=== PATIENT | female | born 1980 | race Caucasian/White ===

== ENCOUNTER 2025-03-06 09:58 | Emergency (ER) | payer OTHER ==
--- OUTSIDE RECORDS SUMMARY | 2025-03-06 10:01 | XMS REPORT | Continuity of Care Document ---
Author Name Unknown Address [address] [facility] [address] [place] [address] Organization [facility] Address [address] [facility] [address] [place] [address] Care Team Providers Care Operations And Maintenance Specialist Name Role Phone LAVINIA REESE Attending Clinician Unavailable Encounters Start Date/Time End Date/Time Encounter Type Admission Type Attending Clinicians Care Facility Care Department Encounter ID Source 2022-03-19 19:42:00 2022-03-19 22:00:00 Emergency ER LAVINIA REESE [facility] [id number] [facility] 2022-03-19 19:42:00 2022-03-19 19:42:00 emergency [id number]
[2025-03-06] MEDS ORDERED: NA CHLORIDE 0.9% 1,000 ML ONE (10:12)
[2025-03-06 10:36] LABS: Absolute Lymphocytes (CBC) 1.9 K/uL (0.7-4.9); Hematocrit 42.2 % (36.0-45.0); Hemoglobin 14.3 g/dL (12.0-15.0); MCH 30.4 pg (27.0-35.0); MCHC 34.0 g/dL (32.0-36.0); MCV 89.5 fL (80-100); MPV 8.6 fL (7.6-11.3); Nucleated RBC Absolute Count 0.0 (0-0); Nucleated Red Blood Cells % 0.0 % (0-0); RBC Red Blood Cell Count 4.71 M/uL (3.86-4.86); White Blood Count 11.80 thou/uL (4.3-10.9)
[2025-03-06 10:47] LABS: ALT/SGPT 32 U/L (13-56); Albumin 3.1 g/dL (3.4-5.0); Albumin/Globulin Ratio 0.9 (1.1-1.8); Alkaline Phosphatase 54 U/L (45-117); Anion Gap 6.7 mEq/L (5.0-15.0); BUN Blood Urea Nitrogen 10 mg/dL (7-18); Globulin 3.6 g/dL (2.3-3.5); Glucose Level 110 mg/dL (74-106); Lipase 14 U/L (13-75); Magnesium 1.9 mg/dL (1.6-2.4); NT PRO-BNP 63 pg/mL (<125); Potassium 3.7 mEq/L (3.5-5.1); Troponin High Sensitivity 3.9 pg/mL (<58.9)
[2025-03-06 10:48] LABS: AST/SGOT < 10 U/L (15-37); Bilirubin Indirect, Calculated 0.3 mg/dL (0.2-0.8)
[2025-03-06 10:49] LABS: Influenza A Ag Positive; Influenza B Ag Negative; SARS-CoV-2 Antigen Rapid Res Negative (Negative)
--- NOTE | 2025-03-06 10:50 | RAD REPORT ---
EXAM: CT brain without contrast HISTORY: Syncope COMPARISON: None TECHNIQUE: Multiple contiguous axial images were obtained and a CT of the brain without contrast.. Sagittal and coronal reconstruction performed. Automated exposure control, adjustment of the mA and/or kV according to patient size, and/or iterative reconstruction. Unless otherwise specified, incidental f indings do not require dedicated imaging follow-up FINDINGS: An intracranial bleed is not seen Ventricles are normal caliber No extra-axial fluid collection noted No significant hypodensity within the brain No fluid within the visualized sinuses or mastoids noted. IMPRESSION: No acute intracranial abnormality noted. If the patient continues to have symptoms to suggest an acute intracranial abnormality then MRI of th e brain would be recommended.
--- NOTE | 2025-03-06 11:05 | RAD REPORT ---
Procedure: Chest Pa And Lat (2 Views) HISTORY: Cough COMPARISON: none FINDINGS: The lungs appear clear of acute infiltrate. No significant pleural effusion noted. The heart is normal size. IMPRESSION: No acute abnormality is displayed.
[2025-03-06] MEDS ORDERED: AZITHROMYCIN 250 MG TAB ONE (11:10)
[2025-03-06] MEDS ORDERED: OSELTAMIVIR 75 MG CAP PO ONE (11:10)
--- NOTE | 2025-03-06 11:12 | EDPHYS ---
Physician Documentation [facility] Name: Carmen Apodaca Age: 44 yrs Sex: Female : 1980 Arrival Date: 03/06/2025 Time: 09:58 Bed 7 Private MD: ED Physician Daniel Sanchez HPI: 03/06 11:08 This 44 yrs old Female presents to ER via EMS with complaints of Syncope. alana 11:08 The patient has experienced syncope, became unresponsive, The patient has experienced alana near-syncope, almost passed out, felt dizzy. Onset: The symptoms/episode began/occurred just prior to arrival. Duration: This was a single episode, that lasted 10 second(s). Context: the episode(s) was witnessed, clinc. Associated injury: The patient did not suffer any apparent associated injury. Associated signs and symptoms: The patient has no apparent associated signs or symptoms. Current symptoms: Currently, the patient is not experiencing any symptoms, the patient feels back to baseline. The patient has not experienced similar symptoms in the past. Historical: - Allergies: 10:13 PENICILLINS; ar8 10:13 Sulfa (Sulfonamide Antibiotics); ar8 10:13 Wellbutrin; ar8 10:13 Zoloft; ar8 - PMHx: 10:13 depressive disorder; IUD; ar8 - Immunization history:: Adult Immunizations not up to date. - Infectious Disease History:: Denies. - Social history:: Smoking status: Patient denies any tobacco usage or history of. - Family history:: not pertinent. ROS: 11:08 Constitutional: Negative for fever, chills, and weight loss, Eyes: Negative for injury, alana pain, redness, and discharge, ENT: Negative for injury, pain, and discharge, Neck: Negative for injury, pain, and swelling, Cardiovascular: Negative for chest pain, palpitations, and edema, Respiratory: Negative for shortness of breath, cough, wheezing, and pleuritic chest pain, Abdomen/GI: Negative for abdominal pain, nausea, vomiting, diarrhea, and constipation, Back: Negative for injury and pain, : Negative for injury, bleeding, discharge, and swelling, MS/Extremity: Negative for injury and deformity, Skin: Negative for injury, rash, and discoloration, Neuro: Negative for headache, weakness, numbness, tingling, and seizure, Psych: Negative for depression, anxiety, suicide ideation, homicidal ideation, and hallucinations, Allergy/Immunology: Negative for hives, rash, and allergies, Endocrine: Negative for neck swelling, polydipsia, polyuria, polyphagia, and marked weight changes, Exam: 11:08 Constitutional: This is a well developed, well nourished patient who is awake, alert, alana and in no acute distress. Head/Face: Normocephalic, atraumatic. Eyes: Pupils equal round and reactive to light, extra-ocular motions intact. Lids and lashes normal. Conjunctiva and sclera are non-icteric and not injected. Cornea within normal limits. Periorbital areas with no swelling, redness, or edema. ENT: Nares patent. No nasal discharge, no septal abnormalities noted. Tympanic membranes are normal and external auditory canals are clear. Oropharynx with no redness, swelling, or masses, exudates, or evidence of obstruction, uvula midline. Mucous membranes moist. Neck: Trachea midline, no thyromegaly or masses palpated, and no cervical lymphadenopathy. Supple, full range of motion without nuchal rigidity, or vertebral point tenderness. No Meningismus. Chest/axilla: Normal chest wall appearance and motion. Nontender with no deformity. No lesions are appreciated. Cardiovascular: Regular rate and rhythm with a normal S1 and S2. No gallops, murmurs, or rubs. Normal PMI, no JVD. No pulse deficits. Respiratory: Lungs have equal breath sounds bilaterally, clear to auscultation and percussion. No rales, rhonchi or wheezes noted. No increased work of breathing, no retractions or nasal flaring. Abdomen/GI: Soft, non-tender, with normal bowel sounds. No distension or tympany. No guarding or rebound. No evidence of tenderness throughout. Back: No spinal tenderness. No costovertebral tenderness. Full range of motion. Skin: Warm, dry with normal turgor. Normal color with no rashes, no lesions, and no evidence of cellulitis. MS/ Extremity: Pulses equal, no cyanosis. Neurovascular intact. Full, normal range of motion., bilateral aka Neuro: Awake and alert, GCS 15, oriented to person, place, time, and situation. Cranial nerves II-XII grossly intact. Motor strength 5/5 in all extremities. Sensory grossly intact. Cerebellar exam normal. Normal gait. Psych: Awake, alert, with orientation to person, place and time. Behavior, mood, and affect are within normal limits. 11:08 ECG was reviewed by the Attending Physician. Vital Signs: 10:00 BP 144 / 92; Pulse 79; Resp 18; Temp 97.5(O); Pulse Ox 97% on R/A; Weight 104.33 kg; ar8 Height 5 ft. 8 in. ; Pain 2/10; 10:30 BP 143 / 68; Pulse 77; Resp 20; Pulse Ox 99% on R/A; Pain 2/10; ar8 11:18 BP 143 / 76; Pulse 82; Resp 18; Pulse Ox 99% on R/A; ar8 10:00 Body Mass Index 34.97 (104.33 kg, 172.72 cm) ar8 10:00 Pain Scale: Adult ar8 10:30 Pain Scale: Adult ar8 MDM: 10:03 Medical Screening Exam initiated alana 11:09 Differential Diagnosis: aortic aneurysm, cardiac arrhythmia, cerebrovascular accident, alana drug effect, emotional response, GI bleed, idiopathic syncope, , pseudo seizure, seizure, sepsis, transient ischemic attack, vasovagal episode. Data reviewed: vital signs, nurses notes, EMS record, lab test result(s), EKG, radiologic studies, CT scan, plain films. Consideration of Admission/Observation Patient was admitted/placed on observation. Escalation of care including admission/observation considered. I considered the following discharge prescriptions or medication management in the emergency department Medications were administered in the Emergency Department. See MAR. Independent interpretation of the following test(s) in the Emergency Department EKG: See my EKG interpretation above. Test considered but Not performed: EKG: no mri brain. Historians other than the Patient: EMS: ems well informed. Care significantly affected by the following chronic conditions: Obesity, depression, iud. 03/06 10:09 Order name: Basic Metabolic Panel; Complete Time: 11: [facility] 03/06 10:09 Order name: CBC with Diff; Complete Time: 11: alana 03/06 10:09 Order name: LFT's; Complete Time: 11: [facility] 03/06 10:09 Order name: Magnesium; Complete Time: 11: alana 03/06 10:09 Order name: NT PRO-BNP; Complete Time: 11: [facility] 03/06 10:09 Order name: Troponin HS; Complete Time: 11:03 [facility] 03/06 10:09 Order name: Group A Streptococcus Rapid; Complete Time: 11:03 [facility] 03/06 10:09 Order name: COVID-19 Ag + Flu A+B Ag; Complete Time: 11:03 [facility] 03/06 10:09 Order name: Lipase; Complete Time: 11:03 [facility] 03/06 10:09 Order name: CT Head Brain wo Cont; Complete Time: 11:03 [facility] 03/06 10:09 Order name: Chest Pa And Lat (2 Views) XRAY; Complete Time: 11:06 [facility] 03/06 10:09 Order name: EKG; Complete Time: 10:10 [facility] 03/06 10:09 Order name: Cardiac monitoring; Complete Time: 10:10 [facility] 03/06 10:09 Order name: EKG - Nurse/Tech; Complete Time: 10:22 [facility] 03/06 10:09 Order name: IV Saline Lock; Complete Time: 10:10 [facility] 03/06 10:09 Order name: Labs collected and sent; Complete Time: 10: [facility] 03/06 10:09 Order name: O2 Per Protocol; Complete Time: 10: [facility] 03/06 10:09 Order name: O2 Sat Monitoring; Complete Time: 10: [facility] EC:08 Rate is 76 beats/min. Rhythm is regular. QRS [place] is Normal. [place] interval is normal. QRS alana interval is normal. QT interval is normal. No Q waves. T waves are Normal. No ST changes noted. Clinical impression: NSR w/ Non-specific ST/T Changes and No evidence of ischemia. Interpreted by me. Reviewed by me. Administered Medications: 10:19 Drug: NS 0.9% IV 1000 ml IV at 1000 ml once; to be given as a bolus over 60 minutes jp5 Route: IV; Rate: 1000 ml; Site: right antecubital; 11:28 Follow up: Response: No adverse reaction; Marked relief of symptoms; IV Status: ar8 Completed infusion 11:14 Drug: Oseltamivir PO 75 mg PO once Route: PO; ar8 11:28 Follow up: Response: No adverse reaction ar8 11:14 Drug: AZITHromycin PO 500 mg PO once Route: PO; ar8 11:28 Follow up: Response: No adverse reaction ar8 Disposition Summary: 03/06/25 11:11 Discharge Ordered Notes: Location: Home [facility] Problem: new alana Symptoms: have improved alana Condition: Stable alana Diagnosis - Syncope Near alana - Influenza due to identified novel influenza A virus alana Followup: alana - With: Private Physician - When: 2 - 3 days - Reason: Recheck today's complaints, Continuance of care, Re-evaluation by your physician Discharge Instructions: - Discharge Summary Sheet alana - Influenza, Adult alana - Near-Syncope alana - Syncope alana - Near-Syncope, [id number] alana - Influenza, Adult, [id number]-[id number]-[id number] alana - Aspirin and Your Heart alana Forms: - Medication Reconciliation Form alana - Antibiotic Education alana - Prescription Opioid Use alana - Patient Portal Instructions alana - Leadership Thank You Letter [facility] Prescriptions: - Tessalon Perles 100 mg Oral capsule - take 2 capsule ORAL route every 8 hours As needed; 30 capsule; Refills: 0, alana Product Selection Permitted - Zithromax Z-David 250 mg Oral Tablet - take 1 tablet ORAL route as directed for 5 days Day 1 - take two (2) tablets alana one time. Day 2, 3, 4 , 5 take one (1) tablet once daily.; 6 tablet; Refills: 0, Product Selection Permitted - Tamiflu 75 mg Oral capsule - take 1 tablet ORAL route every 12 hours for 5 days; 10 tablet; Refills: 0, alana Product Selection Permitted Signatures: Dispatcher [employer] EDDaniel Holden MD MD cha Pena, Jailene, RN RN jp5 Denny De La Cruz RN RN ar8 Corrections: (The following items were deleted from the chart) 10:10 10:10 BASIC METABOLIC PANEL+C.LAB.BRZ ordered. EDMS EDMS 10:10 10:10 CBC+H.LAB.BRZ ordered. EDMS EDMS 10:10 10:10 HEPATIC FUNCTION+C.LAB.BRZ ordered. EDMS EDMS 10:10 10:10 MAGNESIUM+C.LAB.BRZ ordered. EDMS EDMS 10:10 10:10 PROBNP+C.LAB.BRZ ordered. EDMS EDMS 10:10 10:10 Troponin High Sensitivity+C.LAB.BRZ ordered. EDMS EDMS 10:10 10:10 UA Rfx Christiano Cult if indicated+U.LAB.BRZ ordered. EDMS EDMS 10:10 10:10 Test, Urine+UC.LAB.BRZ ordered. EDMS EDMS 10:10 10:10 Group A Streptococcus Rapid Sc+I.LAB.BRZ ordered. EDMS EDMS 10:10 10:10 COVID-19 Ag + Flu A+B Ag+I.LAB.BRZ ordered. EDMS EDMS 10:10 10:10 Test, Urine+UC.LAB.BRZ ordered. EDMS EDMS 10:10 10:10 LIPASE+C.LAB.BRZ ordered. EDMS EDMS
--- NOTE | 2025-03-06 11:12 | ER ---
Nurse's Notes [facility] Name: Carmen Apodaca Age: 44 yrs Sex: Female : 1980 Arrival Date: 03/06/2025 Time: 09:58 Bed 7 Private MD: Diagnosis: Syncope Near;Influenza due to identified novel influenza A virus Presentation: 03/06 10:00 Chief complaint: EMS states: Per EMS, patient experienced a witnessed syncopal episode ar8 at urgent care at \R\0930. Patient was being seen for a REAVES, fever, and body aches. Patient states that she feels fine except for her REAVES. 10:00 Coronavirus screen: At this time, the client does not indicate any symptoms associated ar8 with coronavirus-19. Ebola Screen: No symptoms or risks identified at this time. Initial Sepsis Screen: Does the patient meet any 2 criteria? No. Patient's initial sepsis screen is negative. Does the patient have a suspected source of infection? No. Patient's initial sepsis screen is negative. Risk Assessment: Do you want to hurt yourself or someone else? Patient reports no desire to harm self or others. Onset of symptoms was March 06, 2025 at 09:30. 10:00 Method Of Arrival: EMS: [facility] ar8 10:00 Acuity: VALENTINE 3 ar8 Triage Assessment: 10:05 General: Appears in no apparent distress. Behavior is calm, cooperative. ar8 10:05 Pain: Complains of pain in REAVES Pain currently is 2 out of 10 on a pain scale. EENT:. ar8 Neuro: Level of Consciousness is awake, alert, obeys commands, Oriented to person, place, time, situation, Grocery Packer are equal bilaterally Moves all extremities. Full function Reports headache. Cardiovascular: Patient's skin is warm and dry. Respiratory: Airway is patent Respiratory effort is even, unlabored, Respiratory pattern is regular, symmetrical. GI: No signs and/or symptoms were reported involving the gastrointestinal system. : No signs and/or symptoms were reported regarding the genitourinary system. Derm: No signs and/or symptoms reported regarding the dermatologic system. Musculoskeletal: Reports generalized body aches. Historical: - Allergies: 10:13 PENICILLINS; ar8 10:13 Sulfa (Sulfonamide Antibiotics); ar8 10:13 Wellbutrin; ar8 10:13 Zoloft; ar8 - PMHx: 10:13 depressive disorder; IUD; ar8 - Immunization history:: Adult Immunizations not up to date. - Infectious Disease History:: Denies. - Social history:: Smoking status: Patient denies any tobacco usage or history of. - Family history:: not pertinent. Screenin:09 [facility] ED Fall Risk Assessment (Adult) History of falling in the last 3 months, jp5 including since admission No falls in past 3 months (0 pts) Confusion or Disorientation No (0 pts) Intoxicated or Sedated No (0 pts) Impaired Gait No (0 pts) Mobility Assist Device Used No (0 pt) Altered Elimination No (0 pt) Score/Fall Risk Level 0 - 2 = Low Risk Oriented to surroundings, Maintained a safe environment, Educated pt \T\ family on fall prevention, incl call for assistance when getting out of bed, Assessed \T\ reinforced patient's understanding of fall precautions, Provided non-skid footwear, Hourly rounding (assess needs \T\ fall precautionary measures) done, Used ambulatory aids as needed (educated on \T\ assisted with). Abuse screen: Denies threats or abuse. Denies injuries from another. Nutritional screening: No deficits noted. Tuberculosis screening: No symptoms or risk factors identified. Assessment: 10:15 Reassessment: See triage assessment. ar8 10:24 Reassessment: Patient and/or family updated on plan of care and expected duration. Pain jp5 level reassessed. Vital Signs: 10:00 BP 144 / 92; Pulse 79; Resp 18; Temp 97.5(O); Pulse Ox 97% on R/A; Weight 104.33 kg; ar8 Height 5 ft. 8 in. ; Pain 2/10; 10:30 BP 143 / 68; Pulse 77; Resp 20; Pulse Ox 99% on R/A; Pain 2/10; ar8 11:18 BP 143 / 76; Pulse 82; Resp 18; Pulse Ox 99% on R/A; ar8 10:00 Body Mass Index 34.97 (104.33 kg, 172.72 cm) ar8 10:00 Pain Scale: Adult ar8 10:30 Pain Scale: Adult ar8 ED Course: 10:02 Patient arrived in ED. ll1 10:03 Daniel Sanchez MD is Attending Physician. alana 10:05 Arm band placed on right wrist. ar8 10:08 Denny De La Cruz, RN is Primary Nurse. ar8 10:08 No provider procedures requiring assistance completed. jp5 10:08 Maintain EMS IV. Dressing intact. Good blood return noted. Site clean \T\ dry. Gauge \T\ charmaine 5 site: 18g RAC. Flushed with 10 mL NS. 10:08 Patient has correct armband on for positive identification. Bed in low position. Call jp5 light in reach. Side rails up X 1. Provided Education on: CALL LIGHT USE. 10:09 pulp refiner operator on. Pulse ox on. NIBP on. jp5 10:13 Triage completed. ar8 10:17 Initial lab(s) drawn, by me, sent to lab. COVID swab sent to lab. Flu and/or RSV swab jp5 sent to lab. Strep swab sent to lab. 10:18 Lipase Sent. jp5 10:18 COVID-19 Ag + Flu A+B Ag Sent. jp5 10:18 Group A Streptococcus Rapid Sent. jp5 10:18 Basic Metabolic Panel Sent. jp5 10:18 CBC with Diff Sent. jp5 10:18 LFT's Sent. jp5 10:18 Magnesium Sent. jp5 10:18 NT PRO-BNP Sent. jp5 10:19 Troponin HS Sent. jp5 10:22 EKG done, by ED staff, reviewed by Daniel Sanchez MD. ar8 10:24 Warm blanket given. jp5 10:35 Patient moved to radiology via wheelchair. ar8 10:41 CT Head Brain wo Cont In Process Unspecified. EDMS 10:50 Patient moved back from radiology. ar8 10:58 Chest Pa And Lat (2 Views) XRAY In Process Unspecified. EDMS 11:27 IV discontinued, intact, bleeding controlled, No redness/swelling at site. Pressure ar8 dressing applied. Administered Medications: 10:19 Drug: NS 0.9% IV 1000 ml IV at 1000 ml once; to be given as a bolus over 60 minutes jp5 Route: IV; Rate: 1000 ml; Site: right antecubital; 11:28 Follow up: Response: No adverse reaction; Marked relief of symptoms; IV Status: ar8 Completed infusion 11:14 Drug: Oseltamivir PO 75 mg PO once Route: PO; ar8 11:28 Follow up: Response: No adverse reaction ar8 11:14 Drug: AZITHromycin PO 500 mg PO once Route: PO; ar8 11:28 Follow up: Response: No adverse reaction ar8 Medication: 10:08 VIS not applicable for this client. jp5 Outcome: 11:11 Discharge ordered by . alana 11:27 Discharged to home ambulatory, ar8 11:27 Condition: stable 11:27 Discharge instructions given to patient, significant other, Instructed on discharge instructions, follow up and referral plans. medication usage, Demonstrated understanding of instructions, follow-up care, medications, Prescriptions given X 3, 11:29 Patient left the ED. ar8 Signatures: Dispatcher [employer] EDMS Daniel Sanchez MD MD cha Lewis, Lynsay, RN RN ll1 Mary Beth Avila RN RN jp5 Denny De La Cruz RN RN ar8
[2025-03-06 11:34] VITALS: TEMP 97.5
[2025-03-06 11:36] VITALS: O2SAT 99
[2025-03-06 11:37] VITALS: BP 143/76
== END 2025-03-06 11:29 | disposition home or self-care (01) ==
LOC: ER 09:58
DX: J10.1 Influenza due to other identified influenza virus with other respiratory manifestations (principal); Z11.52 Encounter for screening for COVID-19
CPT/HCPCS: 93005; 85025; 80048; 36415; 83735; 80076; 84484; 83690; 83880; 70450; 71046; 96360; 99285; 87428; J7030